=== PATIENT | male | born 1955 | race American Indian/Alaskan Native ===

== ENCOUNTER 2017-03-24 07:58 | Emergency (ER) | payer MEDICARE ==
[2017-03-24] MEDS ORDERED: Lidocaine 1% Inj (20ml) ONE (08:24)
[2017-03-24 08:38] VITALS: BP 126/85; PULSE 93; RESP 16; TEMP 98.3; O2SAT 98
[2017-03-24] MEDS ORDERED: Bacitracin 500 Units/gm Oint Foilpak UD ONE ×3 (08:41→08:53)
[2017-03-24] MEDS ORDERED: Bacitracin 500 Units/gm Oint Foilpak UD TOP ONE (08:45)
[2017-03-24] MEDS ORDERED: Lidocaine 1% Inj (20ml) INFIL ONE (08:45)
--- NOTE | 2017-03-24 09:37 | C.PDOC ---
History Of Present Illness 62 yr old male brought in via BLS, presents to the ER s/p sustaining a fall while on the stairs. Patient reports hitting right forehead on the banister, sustaining a laceration. Patient denies LOC, vision changes, nausea, vomiting, neck pain, back pain, dizziness, headache, weakness or numbness. Also reports not UTD on Tetanus and no use of blood thinners. 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 Eyes: Negative for: Vision Change Gastrointestinal: Negative for: Nausea, Vomiting Musculoskeletal: Negative for: Neck Pain, Back Pain Skin: Positive for: Other ((+) Laceration to the right forehead.) Neurological: Negative for: Weakness, Numbness, Headache, Dizziness Physical Exam - Physical Exam Appears: Well, Non-toxic, No Acute Distress Skin: Warm, Dry, No Rash, Other ((+) Immediately below the right eyebrow, 2cm laceration with mild bleeding. ) Head: Atraumatic, Normacephalic Eye(s): bilateral: Normal Inspection, PERRL, EOMI, right: Other (No loco orbital swelling or brusing. Extraocular muscle intact. No pain with extraocular muscle movements. ) Nose: Normal, No Deformity, No Tenderness Oral Mucosa: Moist Neck: Normal, Normal ROM, No Midline Cervical Tenderness, No Paracervical Tenderness, Supple Chest: Symmetrical, No Tenderness Cardiovascular: Rhythm Regular, No Murmur Respiratory: Normal Breath Sounds, No Rales, No Rhonchi, No Wheezing Extremity: Normal ROM, No Swelling Neurological/Psych: Oriented x3, Normal Speech, Normal Motor ED Course And Treatment O2 Sat by Pulse Oximetry: 98 (RA) Pulse Ox Interpretation: Normal Progress Note: Laceration repairs and covered with Bacitrain. Patient refused tetanus. Laceration - Laceration Repair Right Eyebrow Wound Length (In cm): 2 Description Of Wound: Linear Wound Cleansed With: Sterile Saline Anesthesia: Lidocaine 1% (Local infiltrate of lidocaine 3ml ) Wound Examination: Irrigated With Saline Wound Closure: Suture Suture Technique And Material Used: Nylon (4, dermatomal nylon 5-0), Vicryl (2, SC Vicrly 4-0) Wound Complexity: Simple Disposition - Disposition Referrals: [facility] [Outside] Disposition: HOME/ ROUTINE Condition: STABLE Additional Instructions: FOLLOW UP WITH YOUR DOCTOR IN 1 -2 DAYS MENTION TETANUS VACCINATION TO YOUR DOCTOR KEEP AREA CLEAN AND DRY FOR 24 HOURS RETURN TO ER IF YOU HAVE ANY PAIN, SWELLING, REDNESS, DISCHARGE, FEVER, ETC SUTURE REMOVAL IN 5-7 DAYS Prescriptions: Naproxen [Naprosyn Tab] 375 mg PO BID PRN #20 tab PRN Reason: pain Instructions: Head Injury (ED), Facial Laceration (ED) Print Language: YAKUT - Clinical Impression Clinical Impression: Laceration of eyebrow, right, Closed head injury - Scribe Statement The provider has reviewed the documentation as recorded by the Kathrineibivory Resendiz Provider Attestation: All medical record entries made by the Scribe were at my direction and personally dictated by me. I have reviewed the chart and agree that the record accurately reflects my personal performance of the history, physical exam, medical decision making, and the department course for this patient. I have also personally directed, reviewed, and agree with the discharge instructions and disposition.
== END 2017-03-24 09:05 | disposition home or self-care (01) ==
LOC: C.ER 07:58
DX: S01.111A Laceration without foreign body of right eyelid and periocular area, initial encounter (principal); W10.8XXA Fall (on) (from) other stairs and steps, initial encounter; Y92.008 Other place in unspecified non-institutional (private) residence as the place of occurrence of the external cause